=== PATIENT | male | born 1970 ===

== ENCOUNTER 2017-10-18 23:02 | Emergency (ER) | payer SELFPAY ==
[2017-10-18 23:12] VITALS: BP 130/86; PULSE 92; RESP 18; TEMP 98.3
[2017-10-18] MEDS ORDERED: Oxycodone/Acetaminophen 5/325 mg Tab PO STA (23:40)
[2017-10-18] MEDS ORDERED: Lidocaine 1% Inj (20ml) IJ ONE (23:40)
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
[2017-10-18] MEDS ORDERED: Lidocaine 1% Inj (20ml) ONE (23:53)
[2017-10-18] MEDS ORDERED: Oxycodone/Acetaminophen 5/325 mg Tab ONE (23:53)
[2017-10-19] MEDS ORDERED: Tdap Vaccine 0.5 ml Vial (10-64 yrs) IM ONE (01:22)
[2017-10-19 01:44] VITALS: O2SAT 96
--- NOTE | 2017-10-19 10:53 | RAD ---
PROCEDURE: Left Hand Radiographs. HISTORY: FB COMPARISON: None. FINDINGS: BONES: No acute fracture or dislocation identified. Limitations: Moderate-sized ring at the proximal ring finger obscures proximal phalanx left ring finger. JOINTS: Normal. No osteoarthritic changes. SOFT TISSUES: Soft tissues appear diffusely unremarkable border obscured at the proximal phalanx level of the left ring finger by writing. OTHER FINDINGS: None. IMPRESSION: No acute fracture or dislocation identified. Ring obscures proximal phalanx left ring finger.
== END 2017-10-19 01:55 | disposition home or self-care (01) ==
LOC: H.ER 23:02
DX: S61.412A Laceration without foreign body of left hand, initial encounter (principal); X99.0XXA Assault by sharp glass, initial encounter; Z23 Encounter for immunization

== ENCOUNTER 2017-11-18 14:47 | Emergency (ER) | payer MEDICAID ==
[2017-11-18 15:53] VITALS: BP 116/84; PULSE 76; RESP 16; TEMP 98.6; O2SAT 98
--- NOTE | 2017-11-18 16:21 | ED PDOC ---
HPI: Wound Care - HPI Time Seen by Provider: 11/18/17 16:06 Chief Complaint (Nursing): Suture/Staple Removal Chief Complaint (Provider): LEFT hand suture removal History Of Present Illness: LEFT hand sutures place on Oct 18. Did not follow up. Denies and weakness, numbness, discharge or redness. Presents to have stitches removed Past Medical History Reviewed: Historical Data, Nursing Documentation Vital Signs: Last Vital Signs Temp 98.6 F 11/18/17 15:51 Pulse 76 11/18/17 15:51 Resp 16 11/18/17 15:51 BP 116/84 11/18/17 15:51 Pulse Ox 98 11/18/17 15:51 - Family History Family History: States: Unknown Family Hx - Immunization History Hx Tetanus Toxoid Vaccination: No ([place]) - Home Medications Home Medications: Ambulatory Orders Medication Instructions Recorded Cephalexin [Keflex] 500 mg PO BID #14 capsule 10/19/17 - Allergies Allergies/Adverse Reactions: Allergies Allergy/AdvReac Type Severity Reaction Status Date / Time No Known Allergies Allergy Verified 11/18/17 15:50 Review of Systems Constitutional: Negative for: Fever, Chills Skin: Positive for: Lesions. Negative for: Rash, Jaundice, Bruising Neurological: Negative for: Weakness, Numbness Physical Exam - Reviewed Nursing Documentation Reviewed: Yes Vital Signs Reviewed: Yes - Physical Exam Appears: Positive for: Non-toxic, No Acute Distress Comments: LEFT hand: sutures in place, FROM, light touch intact in all nerve distributions of the hand, <2 sec CR, 2+ radial pulse. Hyperkeratotic scar surrounding sutures with peeling. - ECG O2 Sat by Pulse Oximetry: 98 Disposition - Clinical Impression Clinical Impression: Removal of suture Counseled Patient/Family Regarding: Diagnosis - Disposition Disposition: Routine/Home Disposition Time: 16:18 Condition: IMPROVED Additional Instructions: [place] UNGUENTO PETROLATUM A GOLD PIEL 2-3 VECES DIARIO Instructions: Stitches Removal Print Language: HUNGARIAN
== END 2017-11-18 17:47 | disposition home or self-care (01) ==
LOC: H.ER 14:47
DX: Z48.02 Encounter for removal of sutures (principal)